=== PATIENT | female | born 1950 | race Caucasian/White ===

== ENCOUNTER 2019-02-15 11:42 | Emergency (ER) | payer BC, MEDICARE ==
[2019-02-15] MEDS ORDERED: Sodium Chloride 0.9% 10 ML Syringe FLUSH PRN (12:12)
[2019-02-15] MEDS ORDERED: HYDROmorphone 1 MG/ML Syringe IVPUSH ONE (12:13)
--- NOTE | 2019-02-15 12:15 | EDM.PDOC ---
ED HPI GENERAL MEDICAL PROBLEM - General Chief Complaint: General Stated Complaint: VOMITING/R SIDE HEAD PAIN Time Seen by Provider: 02/15/19 11:55 Source of Information: Reports: Patient History Limitations: Reports: No Limitations - History of Present Illness INITIAL COMMENTS - FREE TEXT/NARRATIVE: The patient presents with right sided headache, nausea and vomiting. This all started back in January 25. She had some pain and was seen at the walk in clinic. She was diagnosed with TMJ and was given a muscle relaxer and told to follow up with a dentist. She has a dental appointment coming up but the pain is much worse an she says last night she was up all night and had pain and vomiting She has no numbness or weakness. She as no fever, chills, cough, vision changes, chest pain, shortness of breath or abdominal pain. This has never happened to her before and she has no trauma to that side. Onset: Gradual Duration: Day(s): Location: Reports: Face Quality: Reports: Sharp Severity: Severe Improves with: Reports: None Worsens with: Reports: None Associated Symptoms: Reports: Headaches, Nausea/Vomiting. Denies: Chest Pain, Cough, Fever/Chills, Shortness of Breath Right Face/Facial Pain Score (Numeric/FACES): 8 - Related Data Allergies Allergy/AdvReac Type Severity Reaction Status Date / Time Tetracyclines Allergy Swelling Verified 02/15/19 12:01 Home Meds: Home Meds Hydrocodone/Acetaminophen [Hydrocodon-Acetaminophen 5-325] 1 - 2 each PO Q6HR PRN #20 tablet 02/15/19 [Rx] Levothyroxine [Synthroid] 88 mcg PO DAILY 02/15/19 [History] atorvaSTATin Calcium [Lipitor] 20 mg PO DAILY 02/15/19 [History] carBAMazepine [TEGretol] 100 mg PO BID #30 tab.chew 02/15/19 [Rx] lisinopriL [Lisinopril] 5 mg PO DAILY 02/15/19 [History] ED ROS GENERAL - Review of Systems Review Of Systems: See Below Constitutional: Reports: No Symptoms HEENT: Reports: No Symptoms Respiratory: Reports: No Symptoms Cardiovascular: Reports: No Symptoms Endocrine: Reports: No Symptoms GI/Abdominal: Reports: No Symptoms : Reports: No Symptoms Musculoskeletal: Reports: No Symptoms Skin: Reports: No Symptoms Neurological: Reports: Headache ED EXAM, GENERAL - Physical Exam Exam: See Below Exam Limited By: No Limitations General Appearance: Alert, No Apparent Distress Ears: Normal External Exam, Normal Canal, Normal TMs Nose: Normal Inspection Head: Atraumatic, Normocephalic Neck: Normal Inspection, Supple, Non-Tender Respiratory/Chest: No Respiratory Distress, Lungs Clear, Normal Breath Sounds Cardiovascular: Regular Rate, Rhythm, No Edema, No Murmur GI/Abdominal: Soft, Non-Tender, No Organomegaly, No Mass Back Exam: Normal Inspection Extremities: Normal Inspection Neurological: Alert, Oriented, No Motor/Sensory Deficits Course - Vital Signs Last Recorded V/S: Last Vital Signs Temp 96.7 F 02/15/19 11:56 Pulse 89 02/15/19 11:56 Resp 16 02/15/19 11:56 BP 168/110 H 02/15/19 11:56 Pulse Ox 100 02/15/19 11:56 - Orders/Labs/Meds Orders: Active Orders 24 hr Category Date Time Status Cardiac Monitoring [RC] . DIRECTED Care 02/15/19 12:12 Active Peripheral IV Care [RC] . DIRECTED Care 02/15/19 12:13 Active Sodium Chloride 0.9% [Saline Flush] Med 02/15/19 12:12 Active 10 ml FLUSH ASDIRECTED PRN Peripheral IV Insertion Adult [OM.PC] Stat Oth 02/15/19 12:12 Ordered Medication Orders Sodium Chloride (Saline Flush) 10 ml FLUSH ASDIRECTED PRN PRN Reason: Keep Vein Open Last Admin: 02/15/19 12:23 Dose: 10 ml Labs: Laboratory Tests 02/15/19 02/15/19 02/15/19 Range/Units 12:50 12:50 12:50 WBC 5.72 (3.98-10.04) K/mm3 RBC 5.14 (3.98-5.22) M/mm3 Hgb 15.5 (11.2-15.7) gm/dl Hct 46.8 H (34.1-44.9) % MCV 91.1 (79.4-94.8) fl MCH 30.2 (25.6-32.2) pg MCHC 33.1 (32.2-35.5) g/dl RDW Std Deviation 42.5 (36.4-46.3) fL Plt Count 181 L (182-369) K/mm3 MPV 9.3 L (9.4-12.3) fl Neut % (Auto) 83.5 H (34.0-71.1) % Lymph % (Auto) 11.9 L (19.3-51.7) % Phelps % (Auto) 4.4 L (4.7-12.5) % Eos % (Auto) 0 L (0.7-5.8) Baso % (Auto) 0.0 L (0.1-1.2) % Neut # (Auto) 4.78 (1.56-6.13) K/mm3 Lymph # (Auto) 0.68 L (1.18-3.74) K/mm3 Phelps # (Auto) 0.25 (0.24-0.36) K/mm3 Eos # (Auto) 0.00 L (0.04-0.36) K/mm3 Baso # (Auto) 0.00 L (0.01-0.08) K/mm3 ESR 12 (0-20) mm/hr Sodium 138 (136-145) mEq/L Potassium 4.3 (3.5-5.1) mEq/L Chloride 98 (98-107) mEq/L Carbon Dioxide 27 (21-32) mEq/L Anion Gap 17.3 H (5-15) BUN 20 H (7-18) mg/dL Creatinine 0.9 (0.55-1.02) mg/dL Est Cr Clr Drug Dosing 50.23 mL/min Estimated GFR (MDRD) > 60 (>60) mL/min BUN/Creatinine Ratio 22.2 H (14-18) Glucose 99 (80-115) mg/dL Calcium 10.2 H (8.5-10.1) mg/dL Total Bilirubin 0.5 (0.2-1.0) mg/dL AST 25 (15-37) U/L ALT 24 (14-59) U/L Alkaline Phosphatase 85 (46-116) U/L C-Reactive Protein < 0.2 (<1.0) mg/dL Total Protein 8.3 H (6.4-8.2) g/dl Albumin 4.8 (3.4-5.0) g/dl Globulin 3.5 gm/dL Albumin/Globulin Ratio 1.4 (1-2) Rheumatoid Factor Scrn (NEGATIVE) 02/15/19 Range/Units 12:50 WBC (3.98-10.04) K/mm3 RBC (3.98-5.22) M/mm3 Hgb (11.2-15.7) gm/dl Hct (34.1-44.9) % MCV (79.4-94.8) fl MCH (25.6-32.2) pg MCHC (32.2-35.5) g/dl RDW Std Deviation (36.4-46.3) fL Plt Count (182-369) K/mm3 MPV (9.4-12.3) fl Neut % (Auto) (34.0-71.1) % Lymph % (Auto) (19.3-51.7) % Phelps % (Auto) (4.7-12.5) % Eos % (Auto) (0.7-5.8) Baso % (Auto) (0.1-1.2) % Neut # (Auto) (1.56-6.13) K/mm3 Lymph # (Auto) (1.18-3.74) K/mm3 Phelps # (Auto) (0.24-0.36) K/mm3 Eos # (Auto) (0.04-0.36) K/mm3 Baso # (Auto) (0.01-0.08) K/mm3 ESR (0-20) mm/hr Sodium (136-145) mEq/L Potassium (3.5-5.1) mEq/L Chloride (98-107) mEq/L Carbon Dioxide (21-32) mEq/L Anion Gap (5-15) BUN (7-18) mg/dL Creatinine (0.55-1.02) mg/dL Est Cr Clr Drug Dosing mL/min Estimated GFR (MDRD) (>60) mL/min BUN/Creatinine Ratio (14-18) Glucose (80-115) mg/dL Calcium (8.5-10.1) mg/dL Total Bilirubin (0.2-1.0) mg/dL AST (15-37) U/L ALT (14-59) U/L Alkaline Phosphatase (46-116) U/L C-Reactive Protein (<1.0) mg/dL Total Protein (6.4-8.2) g/dl Albumin (3.4-5.0) g/dl Globulin gm/dL Albumin/Globulin Ratio (1-2) Rheumatoid Factor Scrn Positive H (NEGATIVE) Meds: Medications Generic Name Dose Route Start Last Admin Trade Name Frenate PRN Reason Stop Dose Admin Sodium Chloride 10 ml 02/15/19 12:12 02/15/19 12:23 Saline Flush FLUSH 10 ml ASDIRECTED PRN Administration Keep Vein Open Discontinued Medications Generic Name Dose Route Start Last Admin Trade Name Freq PRN Reason Stop Dose Admin Hydromorphone HCl 1 mg 02/15/19 12:13 02/15/19 12:22 Dilaudid IVPUSH 02/15/19 12:14 1 mg ONETIME ONE Administration Ondansetron HCl 4 mg 02/15/19 14:27 02/15/19 14:32 Zofran IVPUSH 02/15/19 14:28 4 mg ONETIME ONE Administration - Re-Assessments/Exams Free Text/Narrative Re-Assessment/Exam: 02/15/19 14:20 I ordered an IV saline lock, dilaudid 1mg IV, labs and a CT of her head. Her CBC looks good. Her ESR is normal along with her CRP. Her anion gap is slightly elevated at 17.3. Her CT shows shows nothing acute. 02/15/19 15:19 She had some nausea so I ordered zofran. Her pain is gone now. I am concerned this is some trigeminal neuralgia. I will get her some some tegratol and some hydrocodone for pain. Departure - Departure Time of Disposition: 15:20 Disposition: Home, Self-Care 01 Condition: Good Clinical Impression: Trigeminal autonomic cephalgias - Discharge Information *PRESCRIPTION DRUG MONITORING PROGRAM REVIEWED*: No *COPY OF PRESCRIPTION DRUG MONITORING REPORT IN PATIENT NATALYA: No Prescriptions: Hydrocodone/Acetaminophen [Hydrocodon-Acetaminophen 5-325] 1 - 2 each PO Q6HR PRN #20 tablet PRN Reason: Pain carBAMazepine [TEGretol] 100 mg PO BID #30 tab.chew Referrals: Jey Cotton MD [Primary Care Provider] - 1 Week Forms: ED Department Discharge Additional Instructions: Take the tegratol 2 times per day. Take the hyrocodone as needed for pain. Pleas return if you are worse. Follow up with Dr Rathgeber and your dentist. Sepsis Event Note - Evaluation Sepsis Screening Result: No Definite Risk - Focused Exam Vital Signs: Vital Signs Temp Pulse Resp BP Pulse Ox 02/15/19 11:56 96.7 F 89 16 168/110 H 100 Date Exam was Performed: 02/15/19 Time Exam was Performed: 15:19 - My Orders Last 24 Hours: My Active Orders 02/15/19 12:12 Cardiac Monitoring [RC] . DIRECTED Sodium Chloride 0.9% [Saline Flush] 10 ml FLUSH ASDIRECTED PRN Peripheral IV Insertion Adult [OM.PC] Stat 02/15/19 12:13 Peripheral IV Care [RC] . DIRECTED - Assessment/Plan Last 24 Hours: My Active Orders 02/15/19 12:12 Cardiac Monitoring [RC] . DIRECTED Sodium Chloride 0.9% [Saline Flush] 10 ml FLUSH ASDIRECTED PRN Peripheral IV Insertion Adult [OM.PC] Stat 02/15/19 12:13 Peripheral IV Care [RC] . DIRECTED
--- NOTE | 2019-02-15 13:38 | CT ---
Head CT Technique: Multiple axial sections through the brain were obtained. Intravenous contrast was not utilized. Comparison: No previous intracranial imaging is available. Findings: Ventricles along with basal cisterns and sulci over the convexities appear within normal limits for the patient's age. No abnormal parenchymal densities are seen. No evidence of intracranial hemorrhage. No midline shift or mass effect is seen. Bone window settings were reviewed. No acute calvarial abnormality is seen. Visualized mastoid sinuses and paranasal sinuses show nothing acute. Impression: 1. Nothing acute is appreciated on noncontrast head CT exam. Diagnostic code #1 This report was dictated in [place] Standard Time
[2019-02-15] MEDS ORDERED: Ondansetron 4 MG/2 ML SDV IVPUSH ONE (14:27)
== END 2019-02-15 15:55 | disposition home or self-care (01) ==
LOC: JD.ED 11:42
DX: G44.099 Other trigeminal autonomic cephalgias (TAC), not intractable (principal); Z79.899 Other long term (current) drug therapy; Z88.1 Allergy status to other antibiotic agents
CPT/HCPCS: 36415; 70450; 80053; 85025; 85652; 86140; 86430; 96374; 96375; 99284; J1170; J2405; 99283